=== PATIENT | female | born 1985 | race Caucasian/White ===

== ENCOUNTER 2021-09-11 00:20 | Inpatient (IN) | payer OTHER ==
[~2021-09-11] VITALS: Ht 165.1 cm; Wt 81.0 kg
[2021-09-11] MEDS ORDERED: ALPR-709 PO (00:57)
[2021-09-11] MEDS ORDERED: SODIUM CHLORIDE 0.9% 1,000 ML IV ONE (01:00)
[2021-09-11 02:34] LABS: BASOPHILS % (AUTO) 0.3 % (0.0-2.0); EOSINOPHILS % (AUTO) 2.2 % (1.0-6.0); HEMATOCRIT 39.5 % (36-46); HEMOGLOBIN 13.5 g/dL (12.0-16.0); LYMPHOCYTES # (AUTO) 2.2 K/uL (1.0-4.8); LYMPHOCYTES % (AUTO) 34.1 % (22.0-44.0); MEAN CORPUSCULAR HEMOGLOBIN 28.6 pg (26.0-34.0); MEAN CORPUSCULAR HGB CONC 34.2 G/dL (31.0-37.0); MEAN CORPUSCULAR VOLUME 84 fL (80-100); MONOCYTES # (AUTO) 0.6 K/uL (0.1-1.0); NEUTROPHILS # (AUTO) 3.4 K/uL (1.8-7.7); NEUTROPHILS % (AUTO) 53.4 % (40.0-70.0); PLATELET COUNT (AUTO) 293 K/uL (150-450); RED BLOOD CELL COUNT(AUTO) 4.71 MIL/uL (4.00-5.20); RED CELL DISTRIBUTION WIDTH 13.4 % (11.5-14.5)
[2021-09-11 02:45] LABS: ANION GAP 7 mmol/L (8-16); CALCIUM, TOTAL 8.8 mg/dL (8.8-10.5); CARBON DIOXIDE 27 mmol/L (22-29); CHLORIDE 103 mmol/L (98-107); CREATININE 0.73 mg/dL (0.60-1.30); GLUCOSE,RANDOM 100 mg/dL (70-110); POTASSIUM 3.8 mmol/L (3.5-5.1); SODIUM SERUM 137 mmol/L (136-145); UREA NITROGEN, BLOOD 12 mg/dL (7-18)
[2021-09-11 02:46] LABS: GLOMERULAR FILTR. RATE CALC > 60 mL/min (>60)
[2021-09-11 02:51] LABS: ALANINE AMINOTRANSFERASE 35 U/L (12-78); ALBUMIN 3.3 g/dL (3.4-5.0); ALKALINE PHOSPHATASE 64 U/L (46-116); ASPARTATE AMINOTRANSFERASE 20 U/L (15-37); BILIRUBIN,TOTAL 0.5 mg/dL (0.1-1.0); TOTAL PROTEIN, SERUM 7.2 g/dL (6.4-8.2)
[2021-09-11] MEDS ORDERED: ONDANSETRON HCL 4 MG/2 ML VIAL IVP PRN (04:45)
[2021-09-11] MEDS ORDERED: MAGNESIUM SULFATE 2 GM, MVI, ADULT NO.1 WITH VIT K 10 ML, THIAMINE 100 MG, FOLIC ACID 1... IV SCH ×5 (05:00)
[2021-09-11 06:10] LABS: COVID AG,FIA SOURCE NASAL SWAB
[2021-09-11] MEDS ORDERED: HEPARIN SODIUM,PORCINE 5,000 UNITS/ML VIAL SQ SCH (08:00)
[2021-09-11] MEDS: ACETAMINOPHEN 325 MG TABLET PO PRN (08:02)
[2021-09-11] MEDS: LORazepam 2 MG TABLET PO PRN ×2 (08:03→10:55)
[2021-09-11 09:05] VITALS: BP 149/85
[2021-09-11] MEDS ORDERED: LORazepam 2 MG/ML VIAL IVP PRN (11:45)
[2021-09-11 13:04] VITALS: BP 115/83
[2021-09-11 16:38] VITALS: BP 116/67
[2021-09-11 19:38] VITALS: BP 124/76
[2021-09-11] MEDS ORDERED: CYCLOBENZAPRINE HCL 10 MG TABLET PO ONE (20:30)
[2021-09-11] MEDS: LORazepam 1 MG TABLET PO PRN ×2 (20:42→23:45)
[2021-09-12 04:05] VITALS: BP 115/65
[2021-09-12] MEDS ORDERED: MAGNESIUM SULFATE 2 GM, MVI, ADULT NO.1 WITH VIT K 10 ML, THIAMINE 100 MG, FOLIC ACID 1... IV SCH ×5 (05:00)
[2021-09-12] MEDS: LORazepam 1 MG TABLET PO PRN ×3 (05:45→18:35)
[2021-09-12] MEDS ORDERED: LORazepam 2 MG TABLET PO PRN (07:00)
[2021-09-12 07:45] VITALS: BP 120/64
[2021-09-12] MEDS ORDERED: LORazepam 2 MG TABLET PO SCH (09:00)
[2021-09-12] MEDS: ACETAMINOPHEN 325 MG TABLET PO PRN (10:00)
[2021-09-12] MEDS: MULTIVITAMINS WITH MINERALS, THERAPEUTIC TABLET PO SCH (12:17)
[2021-09-12 16:09] VITALS: BP 108/67
[2021-09-12 20:20] VITALS: BP 101/52
[2021-09-13] MEDS: LORazepam 1 MG TABLET PO PRN (00:33)
[2021-09-13 04:40] VITALS: BP 122/74
[2021-09-13 08:32] VITALS: BP 115/73
[2021-09-13] MEDS: MULTIVITAMINS WITH MINERALS, THERAPEUTIC TABLET PO SCH (08:53)
[2021-09-13] MEDS: ACETAMINOPHEN 325 MG TABLET PO PRN ×2 (12:47→19:45)
[2021-09-13 17:37] VITALS: BP 127/74
[2021-09-13 19:41] VITALS: BP 133/81
[2021-09-14 04:38] VITALS: BP 116/81
[2021-09-14] MEDS ORDERED: LORazepam 1 MG TABLET PO PRN (07:00)
[2021-09-14] MEDS: MULTIVITAMINS WITH MINERALS, THERAPEUTIC TABLET PO SCH (08:57)
[2021-09-14] MEDS ORDERED: LORazepam 1 MG TABLET PO SCH (09:00)
[2021-09-14] MEDS: ACETAMINOPHEN 325 MG TABLET PO PRN ×2 (09:18→15:31)
[2021-09-14] MEDS ORDERED: ACET-2247 PO (11:34)
[2021-09-15] MEDS ORDERED: LORazepam 1 MG TABLET PO PRN (07:00)
== END 2021-09-14 16:38 | DRG 897 ==
LOC: EMS 00:25 → 6S 04:43
PROVIDERS: ADMIT Internal Medicine; ATTEND Internal Medicine
DX: F11.23 Opioid dependence with withdrawal (principal); F10.139 Alcohol abuse with withdrawal, unspecified; F43.10 Post-traumatic stress disorder, unspecified; F17.210 Nicotine dependence, cigarettes, uncomplicated; F19.10 Other psychoactive substance abuse, uncomplicated; Z20.822 Contact with and (suspected) exposure to COVID-19
CPT/HCPCS: 80053; 85025; 99285; G0480; J2060; J2405; J3411; J3475; J3490; J7030